=== PATIENT | female | born 1995 | race Caucasian/White ===

== ENCOUNTER → 2018-04-19 | Outpatient (REF) | payer OTHER ==
[2018-04-19 18:54] LABS: APPEARANCE, URINE TURBID (CLEAR); BACTERIA, URINE AUTO 2+ (NEGATIVE); BILIRUBIN, URINE AUTO NEGATIVE (NEGATIVE); BLOOD, URINE BLOOD 3+ (NEGATIVE); COLOR, URINE YELLOW (YELLOW); GLUCOSE, URINE (UA) AUTO NEGATIVE (NEGATIVE); KETONE, URINE AUTO NEGATIVE (NEGATIVE); LEUKOCYTE ESTERASE, URINE AUTO 3+ (NEGATIVE); NITRITE, URINE AUTO NEGATIVE (NEGATIVE); PROTEIN, URINE AUTO 2+ mg/dL (NEGATIVE); RBC, URINE AUTO TNTC /HPF (0-3); SPECIFIC GRAVITY URINE AUTO 1.017 (1.002-1.035); SQUAMOUS EPITHELIAL CELL UR AU 1 /HPF (0-6); UROBILINOGEN, URINE AUTO 0.2 mg/dL (0.0-2.0); WBC, URINE AUTO TNTC /HPF (0-3)
== END ==
LOC: M LAB REF 16:33
DX: N39.0 Urinary tract infection, site not specified (principal)

== ENCOUNTER → 2019-03-21 | Outpatient (CLI) | payer OTHER ==
--- NOTE | 2019-03-21 15:33 | ECGEPIP ---
[facility] Test Date: 2019-03-21 Pat Name: FAUSTO BARNES Department: Room: - Gender: Female [employer]: MALACHI : 1995 Requested By: JASON Wong CNM Order Number: [id number] Reading MD: [place] Acharya Measurements Intervals [place] Rate: 83 P: 19 ND: 145 QRS: 48 QRSD: 78 T: 3 QT: 350 QTc: 412 Interpretive Statements SINUS RHYTHM LOW QRS VOLTAGE IN PRECORDIAL LEADS NO PRIOR NONSPECIFIC T ABN Electronically Signed on 03-21-2019 15:32:56 EST by [place] Acharya
== END ==
LOC: M EKG 15:03
PROVIDERS: ATTEND Advanced Practice Midwife
DX: O24.112 Pre-existing type 2 diabetes mellitus, in pregnancy, second trimester (principal); Z3A.16 16 weeks gestation of pregnancy; R94.31 Abnormal electrocardiogram [ECG] [EKG]

== ENCOUNTER → 2019-08-21 | Outpatient (CLI) | payer OTHER ==
--- NOTE | 2019-08-22 04:44 | REP ---
Clinical: Growth evaluation. Comparison: None . Findings: Examination demonstrates a single live intrauterine in cephalic presentation. motion is identified by technologist. Placenta is noted posterior and grade I without evidence for placenta previa or abruption. Amniotic fluid volume is below normal range. Cervix measures 4.8 cm in length and appears closed. No evidence for nuchal cord. Gestational age by LMP 38 weeks 3 days with TG 09/01/2019 . Gestational age by current measurements 39 weeks 0 days with TG 08/28/2019 . FHR equals 152 beats per minute. Estimated weight 3812 grams ( 78th percentile). Amniotic fluid index: 6.4 cm (7.3 - 23.4) Umbilical cord SD ratio: 2.31 (1.60 - 2.60). Impression: 1. Single live advanced gestation in cephalic presentation demonstrating appropriate estimated weight. 2. Amniotic fluid volume is below normal range (RHODA: 6.4 cm). Electronically Signed by Mike Gutierrez MD 08/22/2019 04:36 A
== END ==
LOC: M RAD 11:17
PROVIDERS: ATTEND Obstetrics & Gynecology
DX: Z34.93 Encounter for supervision of normal pregnancy, unspecified, third trimester (principal); Z3A.37 37 weeks gestation of pregnancy

== ENCOUNTER 2019-08-28 06:55 | Inpatient (IN) | payer OTHER ==
[~2019-08-28] VITALS: Ht 160 cm; Wt 107.7 kg
[2019-08-28] MEDS: NS 1,000 ML IV SCH ×3 (06:58→22:58)
[2019-08-28] MEDS ORDERED: INSULIN IV RATE CHANGE DOCUMENTATION ML/HR XX SCH (07:00)
[2019-08-28] MEDS ORDERED: TUMS500C PO (07:10)
[2019-08-28 07:31] VITALS: BP 133/80
[2019-08-28 07:42] LABS: HEMATOCRIT 33.9 % (36.0-47.0); HEMOGLOBIN 10.9 g/dl (12.0-15.5); MEAN CORPUSCULAR HEMOGLOBIN 27.5 pg (27.0-33.0); MEAN CORPUSCULAR HGB CONC 32.2 g/dl (32.0-36.5); MEAN CORPUSCULAR VOLUME 85.6 fl (80.0-96.0); PLATELET COUNT, AUTOMATED 246 10^3/uL (150-450); RED BLOOD COUNT 3.96 10^6/uL (4.00-5.40); WHITE BLOOD COUNT 9.2 10^3/uL (4.0-10.0)
[2019-08-28] MEDS ORDERED: INSULIN HUMAN REGULAR 100 UNITS in NS 99 ML IV SCH (08:00)
[2019-08-28 08:03] LABS: BLOOD UREA NITROGEN 10 MG/DL (7-18); CARBON DIOXIDE LEVEL 23 MEQ/L (21-32); CHLORIDE LEVEL 106 MEQ/L (98-107); CREATININE FOR GFR 0.44 MG/DL (0.55-1.30); GLOMERULAR FILTRATION RATE > 60.0 (>60); GLUCOSE, FASTING 93 MG/DL (70-100); POTASSIUM SERUM 3.8 MEQ/L (3.5-5.1); SODIUM LEVEL 138 MEQ/L (136-145)
[2019-08-28] MEDS ORDERED: CALCIUM CARBONATE 500 MG CHEW U/D PO PRN (08:15)
[2019-08-28] MEDS ORDERED: PROMETHAZINE INJ 25 MG/ML VIAL (J2550) IV PRN (08:15)
[2019-08-28] MEDS ORDERED: ACETAMINOPHEN 500 MG TAB PO PRN (08:15)
[2019-08-28] MEDS ORDERED: GLUCOSE 4GM CHEW TABLET PO PRN (08:15)
[2019-08-28] MEDS ORDERED: MOM 30ML SUSPENSION UDC PO PRN (08:15)
[2019-08-28] MEDS ORDERED: DEXTROSE 50% 50 ML SYRINGE IV PRN (08:15)
[2019-08-28] MEDS ORDERED: GLUCAGON INJ 1MG VIAL SC PRN (08:15)
[2019-08-28] MEDS ORDERED: diphenhydrAMINE 25MG CAP PO PRN (08:15)
[2019-08-28] MEDS ORDERED: SIMETHICONE 80 MG CHEW TAB PO PRN (08:15)
[2019-08-28] MEDS ORDERED: BUTORPHANOL 2 MG/ML INJ (J0595) IV PRN (08:15)
[2019-08-28] MEDS ORDERED: PENICILLIN G POTASSIUM IV 5 MU in D5W MINI-BAG PLUS 100 ML IV STA (08:26)
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
[2019-08-28] MEDS ORDERED: miSOPROStol 25 MCG 1/4 TAB (S0191) PO ONE (08:45)
[2019-08-28] MEDS: **PENDING PCN ENTRY XX SCH ×2 (09:00→21:00)
[2019-08-28] MEDS: HumaLOG INSULIN (NovoLOG) PER UNIT SC PRN ×5 (09:37→22:23)
[2019-08-28 10:32] VITALS: BP 133/67
[2019-08-28] MEDS ORDERED: HumaLOG INSULIN (NovoLOG) PER UNIT SC SCH (12:00)
[2019-08-28] MEDS ORDERED: PENICILLIN G POTASSIUM IV 2.5 MU in IV 1 EA IV SCH (12:30)
[2019-08-28] MEDS: miSOPROStol 50 MCG 1/2 TAB (S0191) PV PRN ×3 (15:00→21:07)
[2019-08-28 16:00] VITALS: BP 139/80
[2019-08-28 19:16] VITALS: BP 136/72
--- NOTE | 2019-08-28 19:29 | IPNPDOC ---
Text Note Date of Service The patient was seen on 08/28/19. NOTE Patient feeling contractions. No LOF. VS WNL, FS <100 ABD NT SVE /-3 FHT Category 1, FHR 130s, reactive, no decels, ctx q3-5min A/P: Fetus reassuring. Continue cytotec 50mcg PO q6hrs until cervix 4cm VS,Fishbone, I+O VS, Fishbone, I+O Laboratory Tests 08/28/19 07:30 Vital Signs Date Time Temp Pulse Resp B/P (MAP) Pulse Ox O2 Delivery O2 Flow Rate FiO2 08/28/19 16:00 95 18 139/80 (99) 08/28/19 07:31 98.7 La Marie MD Aug 28, 2019 19:29
[2019-08-28 22:36] VITALS: BP 122/60
[2019-08-29] VITALS (10 sets, daily range): BP systolic 104–139; BP diastolic 59–76
[2019-08-29] MEDS: HumaLOG INSULIN (NovoLOG) PER UNIT SC PRN ×3 (00:34→08:55)
[2019-08-29] MEDS: miSOPROStol 50 MCG 1/2 TAB (S0191) PV PRN ×2 (03:05→09:13)
[2019-08-29] MEDS ORDERED: ONDANSETRON 4MG/2ML VIAL IV PRN ×3 (04:30→18:00)
--- NOTE | 2019-08-29 05:46 | IPNPDOC ---
Text Note Date of Service The patient was seen on 08/29/19. NOTE Patient feeling contractions. No LOF. VS WNL, FS 93, 96 GEN NAD ABD NT, Gravid SVE deferred LE: SCDS in place FHT Category 1, FHR 130s, reactive, no decels, ctx q3-5min A/P: Fetus reassuring. Continue cytotec 50mcg PO until 4cm. VS,Fishbone, I+O VS, Fishbone, I+O Laboratory Tests 08/28/19 07:30 Vital Signs Date Time Temp Pulse Resp B/P (MAP) Pulse Ox O2 Delivery O2 Flow Rate FiO2 08/29/19 00:27 98.3 103 18 133/65 (87) 99 Room Air La Marie MD Aug 29, 2019 05:44
[2019-08-29] MEDS: NS 1,000 ML IV SCH ×3 (06:58→18:33)
[2019-08-29] MEDS ORDERED: PROMETHAZINE INJ 25 MG/ML VIAL (J2550) IV PRN (07:30)
[2019-08-29] MEDS: **PENDING PCN ENTRY XX SCH (09:00)
[2019-08-29] MEDS ORDERED: LR 1,000 ML IV SCH (15:25)
[2019-08-29] MEDS ORDERED: BICITRA 30ML SOLN UDC PO ONE (15:30)
[2019-08-29] MEDS ORDERED: ceFAZolin SOD 2 GM in IV 1 EA IV ONE (15:30)
[2019-08-29] MEDS ORDERED: AZITHROMYCIN INJ 500 MG, VIAL MATE ADAPTER 1 EACH in D5W 250 ML IV ONE (15:30)
[2019-08-29] MEDS ORDERED: SING10TA32 PO (15:48)
[2019-08-29] MEDS ORDERED: ACET-908 PO (15:48)
[2019-08-29] MEDS ORDERED: ZYRTTAB8 PO (15:48)
[2019-08-29] MEDS ORDERED: NOVOINJ12 SC ×2 (15:48)
[2019-08-29] MEDS ORDERED: PRENTAB9 PO (15:48)
[2019-08-29] MEDS ORDERED: NOVOINJ13 SC ×2 (15:48)
[2019-08-29] MEDS ORDERED: PRIL20TA2 PO (15:48)
[2019-08-29] MEDS ORDERED: [UNRECOGNIZED DRUG - CODE] PO (15:48)
[2019-08-29] MEDS ORDERED: COLA100C5 PO (15:48)
[2019-08-29] MEDS ORDERED: IRON65TA2 PO (15:48)
[2019-08-29] MEDS ORDERED: METOCLOPRAMIDE INJ 10MG/2ML VIAL (J2765 PER 1) IV PRN ×2 (16:21→18:00)
[2019-08-29] MEDS ORDERED: NALOXONE INJ 0.4MG/1ML VIAL (J2310 PER 1MG) IV PRN ×2 (16:21)
[2019-08-29] MEDS ORDERED: NALBUPHINE HCL 10 MG/ML AMP (J2300) IV PRN (16:21)
[2019-08-29] MEDS ORDERED: diphenhydrAMINE 50MG/ML VIAL (J1200) IV PRN (16:21)
[2019-08-29] MEDS ORDERED: OXYTOCIN INJ 10 UNITS/ML VIAL (J2590) As Ordered ONE (16:27)
[2019-08-29] MEDS ORDERED: MORPHINE PRES-FREE INJ 10 MG/10 ML VIAL (J2274) As Ordered ONE (16:27)
[2019-08-29] MEDS ORDERED: dexameTHASONE 4 MG/ML 1ML VIAL (J1100 PER 1MG) As Ordered ONE (16:57)
[2019-08-29] MEDS ORDERED: ONDANSETRON 4MG/2ML VIAL As Ordered ONE (16:57)
[2019-08-29] MEDS ORDERED: fentaNYL 100 MCG/2 ML INJECTION (J3010) As Ordered ONE (17:12)
[2019-08-29] MEDS ORDERED: KETOROLAC 60 MG/2 ML VIAL As Ordered ONE (17:44)
[2019-08-29] MEDS ORDERED: KETOROLAC 30 MG/ML 1ML VIAL IV PRN (17:44)
[2019-08-29] MEDS ORDERED: PERCOCET 5MG/325MG TAB PO PRN (18:00)
[2019-08-29] MEDS ORDERED: fentaNYL 100 MCG/2 ML INJECTION (J3010) IV PRN (18:00)
[2019-08-29] MEDS ORDERED: diphenhydrAMINE 25MG CAP PO PRN (18:15)
[2019-08-29] MEDS ORDERED: MEASLES,MUMPS,RUBELLA VACCINE INJ (MMR-II) (90707) SC SCH (18:15)
[2019-08-29] MEDS ORDERED: OXYTOCIN DRIP 30 UNITS in IV 1 EA IV SCH (18:15)
[2019-08-29] MEDS ORDERED: MORPHINE 30 MG TAB **MSIR PO PRN (18:15)
[2019-08-29] MEDS ORDERED: RHOGAM 300 MCG (1500 IU) INJ (J2790) IM SCH (18:15)
[2019-08-29] MEDS ORDERED: METHYLERGONOVINE MALEATE 0.2 MG TAB PO PRN (18:15)
--- NOTE | 2019-08-29 18:24 | ROOPDOC ---
[facility] Report Of Operation Report of Operation DATE OF PROCEDURE: 08/29/19 PREPROCEDURE DIAGNOSES: 1. Term 2. Failed IOL. 3. DM B POSTPROCEDURE DIAGNOSES: 1. Term 2. Failed IOL. 3. DM B PROCEDURE: Primary LTCS SURGEON: La Marie MD ADMINISTRATIVE SUPPORT TECHNICIAN: Mona Jung CNM ANESTHESIA: Spinal, LINUX SYSTEMS ADMINISTRATOR ESTIMATED BLOOD LOSS: Approximately 900 mL. COMPLICATIONS: None REMARKS: No pathology. PROCEDURE NOTE: Normal uterus, tubes and ovaries. No endometriosis noted. Fetus was vertex without nuchal cord. Clear amniotic fluid. Fetus was baby boy 9/9 weighing 3940gm. DESCRIPTION OF PROCEDURE: Patient was brought back to the operating room. The spinal anesthesia was performed and confirmed to be adequate. She was then laid in a supine position with a slight leftward tilt and draped and prepped in the usual sterile fashion. Confirmation of good anesthesia was performed and time out was done. Pfannensteil incision location was marked approximately 2cm above the pubic bone and approximately 9cm in length. The incision was made with a 12 blade scalpel and then carried through the subcutaneous tissue just barely piercing the midline of the fascia with electrocautery. The left side of the fascia was bluntly dissected free from the rectus muscle and elevated with a Rochelle clamp and then transected with electrocautery. This was repeated on the right side. The superior fascia was grasped with two kochers and the rectus muscle was dissected free from the fascia with electrocautery. The two kochers were then brought to the inferior edges of the fascia to elevate and dissect the superior portion of the pyramidalis muscle from the fascia. The rectus muscle was divided along the midline and the peritoneum was entered bluntly superiorly. Retractors were placed. The uterovesical peritoneum was identified and grasped approximate ly 4cm superior to the bladder and incised with Metzenbaum scissors. The incision was carried bilaterally with the scissors and then inferiorly bluntly. The retractor was replaced to include the bladder flap. Uterine incision was then placed with a different 12 blade scalpel in the lower uterine segment transversing approximately 2cm. The serosa and myometrium were gently cut into. The layers were elevated with 2 Allis clamps and then a Rochelle clamp was used to bluntly spread through the remainder of the uterus to avoid injuring the fetus. Amniotic sac was pierced and was clear. Fetus was in a OA position without a nuchal cord. I placed my hand into the uterus and flexed the head to allow delivery and then the body was delivered without difficulty. Mouth and nose were bulb suction. Cord was clamp x2 and cut and baby was handed to awaiting nurse with the above findings. The placenta was grasped and removed intact and normal. Uterus was exteriorized and wrapped in a damp lap and the inside was cleared of all clots and debris with a damp lap. The lower uterine incision edges were identified and grasped with T clamps. The uterine incision was closed with 0 Chromic in a running locked fashion. A second layer was performed with 0 Chromic in a horizontal mattress fashion for imbrication. Good hemostasis was noted. The posterior cul de sac was irrigated and cleared of all clots and debris. The uterus was replaced intra-abdominally. Both pericolic gutters were checked and cleared of all clots and debris. The incision was rechecked and found to be hemostatic. The retractors were removed. Three Rochelle clamps were placed on the peritoneum for elevation and it was closed with 3-0 chromic, which was also used to reapproximate the lower edges of the rectus muscle. The rectus muscle was inspected and found to be hemostatic. The fascia was closed with 0 vicryl in a running unlocked fashion. The fascia was then checked to ensure there was no areas of looseness or defects, which there was not. The subcutaneous layer was irrigated and found to be hemostatic. The dermal edges were reaaproximated with 3-0 vicryl with interrupted U stitches. The epidermis was reapproximated with melissa. A pressure dressing was then placed. The uterus was then expressed. The count for lap, needles, and instruments was correct times 3. The patient was in stable condition to the PACU. La Marie MD Aug 29, 2019 18:14
[2019-08-29] MEDS ORDERED: OXYTOCIN 30 UNITS IN 0.9% NaCl 500ML IV BAG (J2590) As Ordered ONE (18:30)
[2019-08-29] MEDS ORDERED: HumaLOG INSULIN (NovoLOG) PER UNIT SC SCH (21:00)
[2019-08-29] MEDS: ACETAMINOPHEN 500 MG TAB PO SCH (21:00)
[2019-08-29] MEDS: DOCUSATE SODIUM 100 MG CAP PO SCH (21:00)
[2019-08-30] MEDS: KETOROLAC 30 MG/ML 1ML VIAL IV SCH ×3 (01:53→13:30)
[2019-08-30 02:00] VITALS: BP 115/55
[2019-08-30] MEDS: NS 1,000 ML IV SCH (03:20)
[2019-08-30 06:00] VITALS: BP 112/56
--- NOTE | 2019-08-30 07:09 | IPNPDOC ---
Progress Note Date of Service: Aug 30, 2019 Day#: 1 Progress Note SUBJECT: Patient is a 24-year-old 1 now Para 1 status post uncomplicated 1LTCS for failed IOL, doing well postoperative day # 1. She has been ambulating, has hernandez, hasn't ate yet. Reports lochia is like a normal period. Patient is ambulating with assistance. Reports minimal cramping with pumping. OBJECTIVE: VITAL SIGNS: Within normal limits, afebrile. FS 105 GENERAL: No acute distress HEENT: MMM BREAST: Nontender, no erythema CARDIOVASCULAR EXAMINATION: RRR RESPIRATORY EXAMINATION: Bilaterally clear ABDOMINAL EXAMINATION: Soft, appropriate tenderness, nondistended, fundus -2 PERINEUM: Intact, minimal lochia EXTREMITIES: no edema, nontender, SCDS in place WOUND: Dressing clean and intact ASSESSMENT: Patient is a 24-year-old 1 now Para 1 status post uncomplicated 1LTCS for failed IOL, doing well postoperative day # 1. Vitals within normal limits, afebrile, hemodynamically stable with no evidence of infection. PLAN: 1. Routine advances. 2. Tylenol and Motrin and Percocet for pain. 3. Encourage breast feeding and ambulation. VS, I&O, 24H, Fishbone Vital Signs/I&O Vital Signs Date Time Temp Pulse Resp B/P (MAP) Pulse Ox O2 Delivery O2 Flow Rate FiO2 08/29/19 12:54 86 18 113/59 (77) 08/29/19 08:32 97.9 08/29/19 05:30 99 Room Air Laboratory Data 24H LABS Laboratory Tests 2 08/28/19 20:06: Bedside Glucose (Misc Panel) 121H 08/28/19 22:17: Bedside Glucose (Misc Panel) 133H 08/29/19 00:23: Bedside Glucose (Misc Panel) 102 08/29/19 02:28: Bedside Glucose (Misc Panel) 93 08/29/19 04:31: Bedside Glucose (Misc Panel) 96 08/29/19 06:22: Bedside Glucose (Misc Panel) 114H 08/29/19 08:40: Bedside Glucose (Misc Panel) 111H 08/29/19 11:06: Bedside Glucose (Misc Panel) 85 08/29/19 12:57: Bedside Glucose (Misc Panel) 104 08/29/19 14:43: Bedside Glucose (Misc Panel) 90 La Marie MD Aug 29, 2019 18:28
[2019-08-30 07:16] LABS: HEMATOCRIT 28.6 % (36.0-47.0); HEMOGLOBIN 9.2 g/dl (12.0-15.5); MEAN CORPUSCULAR HEMOGLOBIN 28.2 pg (27.0-33.0); MEAN CORPUSCULAR HGB CONC 32.2 g/dl (32.0-36.5); MEAN CORPUSCULAR VOLUME 87.7 fl (80.0-96.0); PLATELET COUNT, AUTOMATED 201 10^3/uL (150-450); RED BLOOD COUNT 3.26 10^6/uL (4.00-5.40); WHITE BLOOD COUNT 9.3 10^3/uL (4.0-10.0)
[2019-08-30] MEDS ORDERED: HumaLOG INSULIN (NovoLOG) PER UNIT SC SCH ×3 (07:30→17:30)
[2019-08-30] MEDS: HumaLOG INSULIN (NovoLOG) PER UNIT SC SCH ×2 (08:12→13:39)
[2019-08-30] MEDS: PRENATAL VITAMINS CHEWABLE TABLET PO SCH (09:16)
[2019-08-30] MEDS: ACETAMINOPHEN 500 MG TAB PO SCH ×3 (09:16→20:45)
[2019-08-30] MEDS: DOCUSATE SODIUM 100 MG CAP PO SCH ×2 (09:16→20:44)
[2019-08-30 14:00] VITALS: BP 125/58
[2019-08-30] MEDS ORDERED: IBUPROFEN 800 MG TAB PO SCH (16:00)
[2019-08-30 18:00] VITALS: BP 115/56
[2019-08-30] MEDS: IBUPROFEN 800 MG TAB PO SCH (20:45)
[2019-08-30 22:00] VITALS: BP 141/66
[2019-08-31] MEDS: IBUPROFEN 800 MG TAB PO SCH ×3 (04:04→20:11)
[2019-08-31 05:43] VITALS: BP 111/64
[2019-08-31] MEDS: ACETAMINOPHEN 500 MG TAB PO SCH (07:49)
[2019-08-31] MEDS: DOCUSATE SODIUM 100 MG CAP PO SCH ×2 (07:49→20:12)
[2019-08-31] MEDS: PRENATAL VITAMINS CHEWABLE TABLET PO SCH (07:49)
[2019-08-31] MEDS ORDERED: oxyCODONE 5MG TAB PO PRN (08:30)
--- NOTE | 2019-08-31 08:46 | IPNPDOC ---
Progress Note Date of Service: Aug 31, 2019 Day#: 2 Progress Note SUBJECT: Patient is a 24 yo s/p PLTCD for failed induction POD #2. She is having some difficulty with pain currently on scheduled motrin and prn acetaminophen and morphine IV for severe pain. She has been ambulating, voiding spontaneously without issue and tolerating regular diet. baby is in NICU for blood sugar control. patient is breast pumping. She had a snack prior to her fasting glucose check this AM. OBJECTIVE: VITAL SIGNS: Within normal limits, afebrile. Alert and oriented times three. Abdomen: Fundus firm at U-2. Soft, NTTP. Dressing on incision. LE: +edema. neg erythema/tenderness A/P PPD #2, clinically stable. need additional pain management. will add oxycodone prn for pain. add miralax for constipation. discussed postoperative course. plan for stables removal tomorrow per Dr. Marie instructions. anticipate d/c home tomorrow. [place], VS, I&O, 24H, Fishbone Vital Signs/I&O Vital Signs Date Time Temp Pulse Resp B/P (MAP) Pulse Ox O2 Delivery O2 Flow Rate FiO2 08/31/19 05:43 98.9 102 18 111/64 (80) 98 08/31/19 01:36 Room Air I&O- Last 24 Hours up to 6 AM 08/31/19 06:00 Intake Total 240 ml Output Total 1800 ml Balance -1560 ml Laboratory Data 24H LABS Laboratory Tests 2 08/30/19 13:28: Bedside Glucose (Misc Panel) 102 08/30/19 17:38: Bedside Glucose (Misc Panel) 121H 08/31/19 06:24: Bedside Glucose (Misc Panel) 119H INDIO ENNIS DO Aug 31, 2019 08:46
[2019-08-31] MEDS: SIMETHICONE 80 MG CHEW TAB PO SCH ×2 (11:43→17:34)
[2019-08-31] MEDS: oxyCODONE 5MG TAB PO PRN (13:24)
[2019-08-31 18:00] VITALS: BP_SYST 108; BP_SYST 132; BP_DIAS 62; BP_DIAS 74
[2019-09-01] MEDS: SIMETHICONE 80 MG CHEW TAB PO SCH ×4 (00:56→19:00)
[2019-09-01] MEDS: IBUPROFEN 800 MG TAB PO SCH ×3 (03:51→19:59)
[2019-09-01] MEDS: oxyCODONE 5MG TAB PO PRN (03:51)
[2019-09-01 06:13] VITALS: BP 154/89
[2019-09-01] MEDS ORDERED: PERCOCET 5MG/325MG TAB PO PRN (08:15)
--- NOTE | 2019-09-01 08:16 | IPNPDOC ---
Progress Note Date of Service: Sep 01, 2019 Day#: 3 Progress Note SUBJECT: Patient is a 24-year-old 1 now Para 1 status post uncomplicated 1LTCS for failed IOL, doing well postoperative day # 3. She has been ambulating, voiding well, and eating well. Reports lochia is mild. Patient is ambulating with no assistance. Reports minimal cramping with pumping. No pain but taking oxycodin OTC. OBJECTIVE: VITAL SIGNS: Within normal limits, afebrile. FS 80-110s. GENERAL: No acute distress HEENT: MMM BREAST: Nontender, no erythema CARDIOVASCULAR EXAMINATION: RRR RESPIRATORY EXAMINATION: Bilaterally clear ABDOMINAL EXAMINATION: Soft, appropriate tenderness, nondistended, fundus -2 PERINEUM: Intact, minimal lochia EXTREMITIES: no edema, nontender WOUND: Dressing clean and intact, Austin removed and incision is C/D/I ASSESSMENT: Patient is a 24-year-old 1 now Para 1 status post uncomplicated 1LTCS for failed IOL, doing well postoperative day # 3. Vitals within normal limits, afebrile, hemodynamically stable with no evidence of infection. PLAN: 1. Continue and postoperative care. 2. Will change pain control (discussed with patient) to motrin OTC, no Tylenol and D/C oxycontin and switch to Percocet for pain. 3. Encourage breast feeding and ambulation. VS, I&O, 24H, Fishbone Vital Signs/I&O Vital Signs Date Time Temp Pulse Resp B/P (MAP) Pulse Ox O2 Delivery O2 Flow Rate FiO2 09/01/19 06:13 98.5 97 18 154/89 (110) 08/31/19 05:43 98 08/31/19 01:36 Room Air La Marie MD Sep 01, 2019 08:16
[2019-09-01] MEDS ORDERED: IBUP80TA PO (08:25)
[2019-09-01] MEDS ORDERED: PERCOCET PO (08:25)
[2019-09-01] MEDS: PRENATAL VITAMINS CHEWABLE TABLET PO SCH (08:26)
[2019-09-01 08:35] VITALS: BP 154/89
[2019-09-01] MEDS: MIRALAX *UNIT DOSE* 17GM PACKET PO SCH ×2 (09:00→20:00)
[2019-09-01] MEDS: DOCUSATE SODIUM 100 MG CAP PO SCH ×2 (09:00→20:00)
[2019-09-01 18:00] VITALS: BP 156/75
[2019-09-02] MEDS: SIMETHICONE 80 MG CHEW TAB PO SCH ×4 (02:03→17:42)
[2019-09-02] MEDS: IBUPROFEN 800 MG TAB PO SCH ×3 (03:54→20:23)
--- NOTE | 2019-09-02 05:36 | IPNPDOC ---
Progress Note Date of Service: Sep 02, 2019 Day#: 4 Progress Note SUBJECT: Patient is a 24-year-old 1 now Para 1 status post uncomplicated 1LTCS for failed IOL, doing well postoperative day # 4. She has been ambulating, voiding well, and eating well. Reports lochia is mild. Patient is ambulating with no assistance. Reports minimal cramping with pumping. Minimal pain. OBJECTIVE: VITAL SIGNS: Within normal limits EXCEPT BP increasing 150s/80s, afebrile. FS 80-110s. GENERAL: No acute distress HEENT: MMM BREAST: Nontender, no erythema CARDIOVASCULAR EXAMINATION: RRR RESPIRATORY EXAMINATION: Bilaterally clear ABDOMINAL EXAMINATION: Soft, appropriate tenderness, nondistended, fundus -2 PERINEUM: Intact, minimal lochia EXTREMITIES: no edema, nontender WOUND: Dressing clean and intact, incision is C/D/I ASSESSMENT: Patient is a 24-year-old 1 now Para 1 status post uncomplicated 1LTCS for failed IOL, doing well postoperative day # 4. BP increasing, afebrile, hemodynamically stable with no evidence of infection. PLAN: 1. Start Labetalol and monitor for stable safe BP. 2. Motrin and Percocet for pain. 3. Encourage breast feeding and ambulation. VS, I&O, 24H, Fishbone Vital Signs/I&O Vital Signs Date Time Temp Pulse Resp B/P (MAP) Pulse Ox O2 Delivery O2 Flow Rate FiO2 09/01/19 06:13 98.5 97 18 154/89 (110) 08/31/19 05:43 98 08/31/19 01:36 Room Air Laboratory Data 24H LABS Laboratory Tests 2 09/01/19 08:02: Bedside Glucose (Misc Panel) 81 La Marie MD Sep 01, 2019 08:18
[2019-09-02 05:53] VITALS: BP 128/74
[2019-09-02 09:00] VITALS: BP 136/83
[2019-09-02] MEDS: PRENATAL VITAMINS CHEWABLE TABLET PO SCH (09:16)
[2019-09-02] MEDS: DOCUSATE SODIUM 100 MG CAP PO SCH ×2 (09:17→20:23)
[2019-09-02] MEDS: LABETALOL 100 MG TAB PO SCH ×2 (09:17→20:26)
[2019-09-02] MEDS: MIRALAX *UNIT DOSE* 17GM PACKET PO SCH ×2 (09:17→20:23)
[2019-09-02 17:58] VITALS: BP 155/81
[2019-09-03] MEDS: SIMETHICONE 80 MG CHEW TAB PO SCH ×2 (00:15→05:37)
[2019-09-03] MEDS: IBUPROFEN 800 MG TAB PO SCH (04:02)
[2019-09-03 05:54] VITALS: BP 136/76
[2019-09-03 08:25] VITALS: BP 133/70
[2019-09-03] MEDS: DOCUSATE SODIUM 100 MG CAP PO SCH (08:30)
[2019-09-03 08:33] VITALS: BP 138/70
[2019-09-03] MEDS: LABETALOL 100 MG TAB PO SCH (08:33)
[2019-09-03] MEDS: MIRALAX *UNIT DOSE* 17GM PACKET PO SCH (08:33)
[2019-09-03] MEDS: PRENATAL VITAMINS CHEWABLE TABLET PO SCH (08:34)
[2019-09-03] MEDS ORDERED: LABE10TAB PO (08:40)
--- NOTE | 2019-09-03 15:54 | DSES ---
DATE OF ADMISSION: 08/28/2019 DATE OF DISCHARGE: 09/03/2019 This lady is a 2, para 0 admitted for induction of labor at 39 and three weeks of gestation, being an AGDM 1, not optimal control. She required to have a primary section because of failed induction of labor. She was group B Streptococcus (GBS) positive, appropriately treated. She delivered a live female infant, 8 pounds, 11 ounces, 3940 grams, scores of 9 and 9 at one and five minutes respectively. Her initial hemoglobin was 10.9, hematocrit 33.9 and platelets were 246. There was an estimated blood loss at surgery of 900 mL. Her day one hemoglobin was 9.2, hematocrit 28.6 and platelets were 201. This is postoperative day five. Risk factors are that she has a body mass index (BMI) of 29.9. She was GBS positive. She had an episode of elevated blood pressures on day four, the highest being 155/81. She was prescribed labetalol 100 mg twice a day. Her blood pressures are now down to 136/76, 130/74, pulse is 88, respirations are 17, and she is afebrile at 98.5. On examination, she has got significant pedal edema. Her incision shows an area of weeping on the left side, approximately 2 cm. A culture was done of that area. It extends from the skin through the fat but not to the fascia. The fascia itself was intact. The rest of the examination is unremarkable. She is normocephalic, atraumatic. Neck: Full range of motion. Pupils equal and reactive to light. Distal pulses are symmetric. No evidence of deep vein thrombosis (DVT), pulmonary embolism (PE) or superficial phlebitis. Chest is clear bilaterally to bases. No wheezes or rhonchi. No costovertebral angle (CVA) tenderness. Abdomen is soft. It is still quite swollen. Four quadrant bowel sounds are noted. Uterus is 2 below. Lochia is moderate, non-foul smelling. She has no rashes, lesions or pruritus. No arthralgia or myalgia. No complaint of joint pain. No complaint cough, wheezes, shortness of breath or dyspnea on exertion. No nausea or vomiting. No diarrhea. She has no urgency or frequency. She is now well-controlled with pain medications of ibuprofen. She is no longer taking OxyContin nor is she taking Percocet. Medications were dispensed at [facility]. Her has still not picked them up. We have given her a written prescription for labetalol 100 mg twice a day. She is to make an appointment with [facility] next week for evaluation of her blood pressures and for evaluation of the incisional site. Antibiotics were not described as it was not indurated, hot, red or tender. It was non-foul smelling. It appears to be localized to an area of possible cautery that was used at time of the surgery. It was whitish discharge that is not purulent. We explained to the patient regarding wound cleansing and keeping it dry using a paper towel or some 4x4s over the area. The patient expressed understanding and will go to [facility] on Wednesday to picking belt operator the rest of her medications and will go to the pharmacy to picking belt operator her labetalol. All questions were answered. A 30-minute discussion. The patient was discharged improved.
== END 2019-09-03 10:45 | disposition home or self-care (01) | DRG 773 ==
LOC: M LDI 06:55 → M OBS 08-29 20:10
PROVIDERS: ADMIT Obstetrics & Gynecology; ATTEND Obstetrics & Gynecology
PROC: 3E0P7GC Introduction of Other Therapeutic Substance into Female Reproductive, Via Natural or Artificial Opening (ICD-10-PCS; 2019-08-28)
PROC: 10D00Z1 Extraction of Products of Conception, Low, Open Approach (ICD-10-PCS; principal; 2019-08-29 16:00)
DX: O24.12 Pre-existing type 2 diabetes mellitus, in childbirth (principal); E11.65 Type 2 diabetes mellitus with hyperglycemia; O99.824 Streptococcus B carrier state complicating childbirth; O61.0 Failed medical induction of labor; Z37.0 Single live birth; Z3A.39 39 weeks gestation of pregnancy

== ENCOUNTER 2019-09-09 01:00 | Emergency (ER) | payer OTHER ==
[~2019-09-09] VITALS: Ht 160 cm; Wt 97.1 kg
[~2019-09-09 01:00] MED LIST: ACET-908 PO; COLA100C5 PO; IBUP80TA PO; IRON65TA2 PO; LABE10TAB PO; NOVOINJ12 SC; NOVOINJ13 SC; PERCOCET PO; PRENTAB9 PO; PRIL20TA2 PO; SING10TA32 PO; TUMS500C PO; ZYRTTAB8 PO; [UNRECOGNIZED DRUG - CODE] PO
[2019-09-09] MEDS ORDERED: FLUC150T (01:17)
[2019-09-09] MEDS ORDERED: BD I1MIS12 (01:17)
[2019-09-09] MEDS ORDERED: OXYC-517 (01:17)
[2019-09-09] MEDS ORDERED: PREN27TA3 (01:17)
[2019-09-09] MEDS ORDERED: OMEP-221 (01:17)
[2019-09-09] MEDS ORDERED: FERR325T18 (01:17)
[2019-09-09] MEDS ORDERED: DICL250C70 (01:17)
[2019-09-09] MEDS ORDERED: MONT10TA4 (01:17)
[2019-09-09] MEDS ORDERED: ALL10TAB29 (01:17)
[2019-09-09] MEDS ORDERED: PEGPOW (01:17)
[2019-09-09 02:09] LABS: HEMATOCRIT 38.9 % (36.0-47.0); HEMOGLOBIN 12.6 g/dl (12.0-15.5); MEAN CORPUSCULAR HEMOGLOBIN 28.1 pg (27.0-33.0); MEAN CORPUSCULAR HGB CONC 32.4 g/dl (32.0-36.5); MEAN CORPUSCULAR VOLUME 86.8 fl (80.0-96.0); PLATELET COUNT, AUTOMATED 388 10^3/uL (150-450); RED BLOOD COUNT 4.48 10^6/uL (4.00-5.40); WHITE BLOOD COUNT 8.7 10^3/uL (4.0-10.0)
[2019-09-09 02:27] LABS: ATYPICAL LYMPH 4 % (0-5); EOSINOPHILS 1 % (0-3); LYMPHOCYTES 24 % (16-44); MONOCYTES 6 % (0-5); NEUTROPHILS 64 % (28-66)
[2019-09-09 02:28] LABS: PLATELET ESTIMATE NORMAL (NORMAL)
[2019-09-09 02:32] LABS: ALT/SGPT 24 U/L (12-78); BILIRUBIN,DIRECT < 0.1 MG/DL (0.0-0.2); BILIRUBIN,TOTAL 0.2 MG/DL (0.2-1.0); LIPASE 100 U/L (73-393); TOTAL PROTEIN 7.3 GM/DL (6.4-8.2)
[2019-09-09] MEDS ORDERED: ISOVUE-370 76% 100ML VIAL As Ordered ONE (02:35)
[2019-09-09] MEDS ORDERED: METOCLOPRAMIDE INJ 10MG/2ML VIAL (J2765 PER 1) IV ONE (02:45)
--- NOTE | 2019-09-09 03:11 | REPVR ---
PROCEDURE INFORMATION: Exam: CT Abdomen And Pelvis With Contrast Exam date and time: 09/09/2019 2:30 AM Age: 24 years old Clinical indication: Abdominal pain; Localized; Lower; Prior surgery; Surgery date: <1 month; Surgery type: ; Additional info: Drainage from c section incision TECHNIQUE: Imaging protocol: Computed tomography of the abdomen and pelvis with intravenous contrast. Radiation optimization: All CT scans at this facility use at least one of these dose optimization techniques: automated exposure control; mA and/or kV adjustment per patient size (includes targeted exams where dose is matched to clinical indication); or iterative reconstruction. Contrast material: ISO; Contrast volume: 100 ml; Contrast route: AC; COMPARISON: US OBS SINGEL GEST 08/21/2019 11:30 AM FINDINGS: Liver: Hepatomegaly measures 21 centimetres. Gallbladder and bile ducts: Normal. No calcified stones. No ductal dilation. Pancreas: Normal. No ductal dilation. Spleen: Normal. No splenomegaly. Adrenals: Normal. No mass. Kidneys and ureters: Normal. No hydronephrosis. Stomach and bowel: Unremarkable. No obstruction. No mucosal thickening. Appendix: Normal appendix. Intraperitoneal space: Unremarkable. No free air. No significant fluid collection. Vasculature: Unremarkable. No abdominal aortic aneurysm. Lymph nodes: Unremarkable. No enlarged lymph nodes. Bladder: Unremarkable as visualized. Reproductive: Enlarged uterus compatible with recently gravid state. Bones/joints: Unremarkable. No acute fracture. Soft tissues: Skin thickening and superficial infiltrative change involving the superficial aspect of the anterior pelvic wall. Small amount of fluid along the deep aspect of the pelvic wall on the right measures up to 3.3 cm. No discrete loculated collection. IMPRESSION: 1. Skin thickening and superficial infiltrative change involving anterior pelvic wall, consider cellulitis. 2. Small amount of irregular fluid involving the deep aspect of the right anterior pelvic wall measuring up to 3.3 cm, postoperative versus phlegmon. No discrete loculated collection is visualized. 3. No acute intra-abdominal or intrapelvic abnormality. Electronically signed by: Cesar Krause On 09/09/2019 03:10:41 AM
[2019-09-09 03:30] VITALS: BP 133/60
--- NOTE | 2019-09-09 07:56 | ED PDOC ---
Post-Departure Follow-Up [facility] and [facility] fp faxed formal report of ct abd/p for fu Soniya Hurtado MD September 09, 2019 07:56
== END 2019-09-09 04:01 | disposition home or self-care (01) ==
LOC: M ED 01:00
DX: O90.0 Disruption of cesarean delivery wound (principal); R11.0 Nausea; O24.434 Gestational diabetes mellitus in the puerperium, insulin controlled; Z87.891 Personal history of nicotine dependence; Z79.899 Other long term (current) drug therapy; Z79.2 Long term (current) use of antibiotics
CPT/HCPCS: 74177; 80047; 80076; 81001; 83690; 85025; 87040; 87070; 87077; 87186; 93041; 96374; 99284; J2765; Q9967